=== PATIENT | female | born 1940 | race Hispanic/Latino ===

== ENCOUNTER 2017-05-13 10:12 | Day surgery (SDC) | payer MEDICARE, OTHER ==
[2017-02-12 08:51] VITALS: BMI 27.8
[2017-05-13 10:51] LABS: INR 1.1
[2017-05-13] MEDS ORDERED: Lidocaine 4% (Laryng-O-Jet) Kit MM ONE (13:42)
[2017-05-13] MEDS ORDERED: Midazolam 2 MG/2 ML VIAL ONE ×4 (13:43→15:31)
[2017-05-13 16:06] LABS: DRAW SITE VBG RA; VENOUS BLOOD GAS BASE EXCESS 0.8 mmol/L (0.0-2.0); VENOUS BLOOD GAS PCO2 46 mmHg (40-60); VENOUS BLOOD PH 7.37 (7.32-7.43)
[2017-05-13 16:09] LABS: DRAW SITE VBG PA; VENOUS BLOOD GAS BASE EXCESS 2.5 mmol/L (0.0-2.0); VENOUS BLOOD GAS PCO2 53 mmHg (40-60); VENOUS BLOOD PH 7.35 (7.32-7.43)
[2017-05-13 16:12] LABS: ABG ALLEN TEST POS; ARTERIAL BLOOD HGB O2 SAT 85.5 % (95.0-98.0); CARBOXYHEMOGLOBIN 2.3 % (0.5-1.5); DRAW SITE FA; HHB 10.5 % (0.0-5.0); METHEMOGLOBIN 1.7 % (0.0-3.0)
[2017-05-13] MEDS ORDERED: Labetalol 25mg/5ml Syringe ONE (16:36)
--- NOTE | 2017-05-13 17:45 | CARD ---
APPROVED REPORT EKG Measurement Heart [id number] <Conclusion> Normal sinus rhythm Right bundle branch block Abnormal ECG
[2017-05-13 18:03] VITALS: BP 172/87; PULSE 66; RESP 18; TEMP 97; O2SAT 96
--- NOTE | 2017-05-14 04:15 | CARDCATH ---
PROCEDURE DATE: 05/13/2017 INDICATION: Carolina Portillo is a pleasant 76-year-old female with history of aortic stenosis that was diagnosed on preoperative cardiovascular risk stratification prior to colonic mass resection. She was therefore brought to the [facility] for further evaluation and treatment of aortic stenosis and underlying CAD. PROCEDURES PERFORMED: Complete heart catheterization with right and left heart catheterization. Left heart catheterization with selective left and right coronary angiogram via 6-Chinese right femoral arterial access and 7-Chinese right femoral venous access, Mynx closure device for hemostasis. TECHNIQUE OF PROCEDURE: After obtaining informed consent, the patient was brought to the cardiac cath suite in post-absorptive, non-sedated state. The patient was prepped and draped in the usual sterile fashion. A 2% lidocaine was used for infiltration of anesthesia. Using modified Seldinger technique, a 7-Chinese sheath was introduced into the right femoral vein and a 6-Chinese sheath was introduced into the right femoral artery. Subsequently, under fluoroscopic guidance, with the balloon inflated, the Wimbledon catheter was advanced serially through the IVC into the RA, RV, PA and wedge position. Hemodynamics along with saturations were obtained. RIGHT HEART CATH HEMODYNAMICS AND SATURATIONS: Right atrial pressure is 9/6/5 with mean right atrial pressure of 5 mmHg, RV pressure 36/2/7 with RV end-diastolic pressure 7 mmHg. Pulmonary artery pressure is 30/14/21, mean PA pressures of 20 mmHg. Pulmonary capillary wedge pressure is 18/13/12 with pulmonary capillary wedge pressure of 12 mmHg. LV pressure is 271/9/39. LVEDP was 39 mmHg. AO pressure is 168/89. Peak to peak gradient was 90 mmHg. Hemodynamics showed femoral artery saturation is 89%, PA saturation of 69%, RA saturation is 74%. Hemoglobin 13.5. Using the peak equation, cardiac outflow was calculated to be 5.39 and cardiac index was 2.81 liters per minute per square meter area. Aortic valve area was calculated to be 0.5 cm2 with a continuity equation. CORONARY ANATOMY: Left main, large-size vessel, bifurcates into left anterior descending and left circumflex coronary artery. Left anterior descending is a large-size vessel, gives off two medium sized diagonal branches, mid left anterior descending artery has 55% to 60% stenosis. Left circumflex is a large-size vessel, runs into AV groove *------* left PDA, obtuse marginal. OM1 is a moderate-size vessel and bifurcates into superior and inferior branches. Right coronary artery is small, non-dominant. IMPRESSION: [id number] mid left anterior descending stenosis, severe aortic stenosis, hyperdynamic left ventricle, mildly elevated filling pressures. RECOMMENDATIONS: The patient is to be evaluated further for transaortic valve replacement. The patient will be referred to Dr. Abilio Banda and *------* at [facility]. Triston Agrawal MD
--- NOTE | 2017-05-14 17:05 | CARD ---
APPROVED REPORT EXAM: Transesophageal echocardiogram with color flow Doppler. INDICATION Aortic Valve Disease Reason For Test : Evaluate aortic valve PROCEDURE After obtaining informed consent, patient underwent transesophageal echo in the [facility]. Type of Sedation : Conscious Sedation Sedation was administered by Dr Agrawal . Sedation was achieved with Versed and Fentanyl intravenously. Transesophageal probe was inserted and advanced into esophagus without difficulty. The HELGA was performed without complications. Throughout the procedure, the blood pressure, pulse oximetry, cardiac rhythm, and rate were monitored. LEFT VENTRICLE The left ventricle is normal size. There is mild concentric left ventricular hypertrophy. The left ventricle is hyperdynamic. The Ejection Fraction is >70%. There is normal LV segmental wall motion. Tissue Doppler imaging reveals mild left ventricular diastolic dysfunction. No left ventricle thrombus noted on this study. There is no ventricular septal defect visualized. There is no left ventricular aneurysm. There is no mass noted in the left ventricle. RIGHT VENTRICLE The right ventricle is normal size. The right ventricle is borderline hypertrophied. The right ventricular systolic function is normal. ATRIA The left atrium is borderline dilated. The right atrium size is normal. The interatrial septum is intact with no evidence for an atrial septal defect. AORTIC VALVE The aortic valve is calcified and displays decreased opening. The aortic valve is moderately calcified. There is trace to mild aortic regurgitation. There is severe valvular aortic stenosis. Calculated aortic valve area is 0.6 cm2 with maximum pressure gradient of 75 mmHg ( peak transaortic velocities of 4.32 m/s) There is no aortic valvular vegetation. MITRAL VALVE Mitral annular calcification is mild. There is no evidence of mitral valve prolapse. There is no mitral valve stenosis. Mitral regurgitation is mild. TRICUSPID VALVE The tricuspid valve leaflets are thickened , but open well. There is mild tricuspid regurgitation. There is no tricuspid valve prolapse or vegetation. There is no tricuspid valve stenosis. PULMONIC VALVE The pulmonary valve is normal in structure. There is no pulmonic valvular regurgitation. There is no pulmonic valvular stenosis. GREAT VESSELS The aortic root is normal in size. The ascending aorta is normal in size. The pulmonary artery is normal. The IVC is normal in size and collapses >50% with inspiration. PERICARDIAL EFFUSION There is no pericardial effusion. There is no pleural effusion. <Conclusion> The left ventricle is hyperdynamic. The Ejection Fraction is >70%. Tissue Doppler imaging reveals mild left ventricular diastolic dysfunction. There is severe valvular aortic stenosis. Calculated aortic valve area is 0.6 cm2 with maximum pressure gradient of 75 mmHg ( peak transaortic velocities of 4.32 m/s) Mitral regurgitation is mild. There is mild tricuspid regurgitation.
== END 2017-05-13 19:05 | disposition home or self-care (01) ==
LOC: C.CATHLAB 10:12
PROVIDERS: ATTEND Internal Medicine Interventional Cardiology
DX: I25.10 Atherosclerotic heart disease of native coronary artery without angina pectoris (principal)
CPT/HCPCS: 36415; 82803; 85610; 85730; 93005; 93312; 93458; C1714; C1760; C1766; C1769; C1887; J1644; J2250; J3010